=== PATIENT | female | born 1950 | race Caucasian/White ===

== ENCOUNTER 2017-05-29 05:48 | Day surgery (SDC) | payer OTHER ==
[2017-05-28 10:58] VITALS: BMI 35.7
[~2017-05-29] VITALS: Ht 157.5 cm; Wt 85.5 kg
[2017-05-29] VITALS (14 sets, daily range): BP systolic 104–179; BP diastolic 51–89; PULSE 66–75; RESP 14–24; Ht 157.5 cm; Wt 85.5 kg
[~2017-05-29 05:48] MED LIST: INSU100C5 SQ; MTF1000T
[2017-05-29] MEDS ORDERED: CEFAZOLIN 2 GM/50 ML (PMX) 50 ML IVPB SCH (06:30)
[2017-05-29] MEDS ORDERED: SOD CHLORIDE 0.9% 1,000 ML IV SCH (06:30)
[2017-05-29] MEDS ORDERED: FENO134C PO (07:52)
[2017-05-29] MEDS ORDERED: LINA1TAB5 PO (07:52)
[2017-05-29] MEDS ORDERED: LOSA100T7 PO (07:52)
[2017-05-29] MEDS ORDERED: BUPIVACAINE 0.25% (MPF) 30 ML INJ ONE (07:52)
[2017-05-29] MEDS ORDERED: LEVO0.5P MC (07:52)
[2017-05-29] MEDS ORDERED: INSU100I31 SQ (07:52)
[2017-05-29] MEDS ORDERED: ROCURONIUM 50 MG INJ ONE (08:13)
[2017-05-29] MEDS ORDERED: MIDAZOLAM 1 MG/ML 2 ML INJ ONE (08:14)
[2017-05-29] MEDS ORDERED: LIDOCAINE 1% (MDV) 20 ML INJ ONE (08:14)
[2017-05-29] MEDS ORDERED: CEFAZOLIN 1 GM INJ ONE (08:47)
[2017-05-29] MEDS ORDERED: FAMOTIDINE 20 MG INJ ONE (08:52)
[2017-05-29] MEDS ORDERED: ONDANSETRON 4 MG INJ ONE ×2 (08:52→10:13)
[2017-05-29] MEDS ORDERED: LABETALOL HCL 20MG INJ ONE (09:06)
[2017-05-29] MEDS ORDERED: PROPOFOL 400 ML ONE (09:08)
[2017-05-29] MEDS ORDERED: ACETAMINOPHEN 1000MG/100ML IV 100 ML ONE (09:14)
[2017-05-29] MEDS ORDERED: ROPIVACAINE 0.2% 20 ML VIAL ONE (09:14)
[2017-05-29] MEDS ORDERED: SUGAMMADEX SODIUM 200 MG/2 ML VIAL IV ONE (09:29)
--- NOTE | 2017-05-29 09:42 | OPR ---
Date/Time of Note Date/Time of Note DATE: 05/29/17 TIME: 09:38 Operative Report Procedure Date: May 29, 2017 Preoperative Diagnosis symptomatic gallstones Postoperative Diagnosis same Operation/Procedure Performed 1. laparoscopic cholecystectomy 2. therapeutic injection of subcutaneous local anesthesia Surgeon see signature line Process Development Engineer none Anesthesia Type: general Estimated Blood Loss: 10 - 50 ml's Transfusion none Specimen gallbladder Grafts/Implants none Complications none Pt Condition Post Procedure: stable Indications This is a 67-year-old female with symptoms under gallstones. She requests surgical excision of her gallbladder. Risks alternatives benefits and personnel were discussed the patient. Patient expresses understanding and consents to the operation. Procedure Description Patient is taken to the OR and prepped and draped in usual sterile fashion. Surgical timeout was performed. IV antibiotics were given. Infraumbilical transverse incision is made with a 15 blade. Dissection cautery was carried onto the fascia. The fascia was grasped with Kaycee's and divided with curved Morgan scissors. 0 Vicryl U stitch was placed into the fascia. Blueness on trocar is introduced. Pneumoperitoneum is established. Midepigastric 12 mm optical trocar was placed under direct visualization. Right upper quadrant upper flank 5 mm optical trochars were placed under direct visualization. Upon initial inspection there is adhesions to the gallbladder. These adhesions were taken down with cautery and bluntly. The gallbladder was grasped and retracted in a lateral and our direction. The cautery was used for initial lateral dissection. Careful dissection was performed to identify the cystic duct and cystic artery. The cystic duct was divided with 3 clips proximal and due to thickened tissue was divided distally with 35 mm echelon stapler the cystic artery was divided with 3 clips proximal and clip distal. Additional clips were placed on the staple line. The gallbladder was taken off the gallbladder bed. There is good hemostasis. The gallbladder was retrieved using Endo Catch bag. Ports removed under direct visualization. 0 Vicryl U stitch was tied down. Skin was closed using interrupted and running 4-0 Monocryl. Therapeutic subcutaneous local anesthesia was injected throughout the incision site. Dry dressings were applied. Melissa MAYA May 29, 2017 09:42
[2017-05-29] MEDS ORDERED: HYDROmorphONE (0.2 MG/ML) 10ML SYG IV ONE (09:59)
[2017-05-29] MEDS ORDERED: hydrALAzine 20 MG INJ ONE (09:59)
[2017-05-29] MEDS ORDERED: LABETALOL HCL 20MG INJ IV PRN (10:00)
[2017-05-29] MEDS ORDERED: hydrALAzine 20 MG INJ IV PRN (10:00)
[2017-05-29] MEDS: HYDROmorphONE (0.2 MG/ML) 10ML SYG IV PRN ×4 (10:00→10:18)
[2017-05-29] MEDS ORDERED: HYDROCODONE/APAP (5/325) TAB PO ONE (10:00)
[2017-05-29] MEDS ORDERED: ONDANSETRON 4 MG INJ IV PRN (10:30)
== END 2017-05-29 11:50 | disposition home or self-care (01) ==
LOC: SDS 05:48
PROVIDERS: ATTEND Surgery
DX: K80.10 Calculus of gallbladder with chronic cholecystitis without obstruction (principal); E11.9 Type 2 diabetes mellitus without complications; I12.9 Hypertensive chronic kidney disease with stage 1 through stage 4 chronic kidney disease, or unspecified chronic kidney disease; N18.9 Chronic kidney disease, unspecified; I50.9 Heart failure, unspecified; E03.9 Hypothyroidism, unspecified
CPT/HCPCS: 47562; 82962; 88304; J0131; J0360; J0690; J1170; J2250; J2405; J2795; J3010

== ENCOUNTER 2017-08-07 19:12 | Inpatient (IN) | END 2017-08-09 11:12 | disposition home or self-care (01) | DRG 342 ==